=== PATIENT | female | born 1930 | race Caucasian/White ===

== ENCOUNTER 2017-12-08 10:09 | Inpatient (IN) | payer MEDICARE ==
[~2017-12-08] VITALS: Ht 162.6 cm; Wt 79.7 kg
[~2017-12-08 10:09] MED LIST: AGGRENOX 200/251 CAP PO; ANTIVERT PO; BENTYL10 MG PO; CIPROFLOXACIN250 MG PO; COMPAZINE10 MG PO; DARVOCET N-100100 - OR; DICLOFENAC SODI75 MG PO; FLEXERIL5 MG PO; FLUARIX QUADRIV1 IN1 IM; FLUARIX QUADRIV1 INJ IM; FLULAVAL IM; K-DUR/KLOR-CON10 ME1 PO; KLOR-CON 1010 ME1 PO; LASIX 20 MG TAB20 MG PO; LASIX20 MG PO; LIPITOR10 MG PO; LIPITOR20 MG PO; LOMOTIL2.5 MG PO; LOPRESSOR50 MG PO; LORTAB 5/3255 MG PO; MECLIZINE25 MG PO; METFORMIN500 M1 OR; METFORMIN500 M1 PO; METOPROL TAR100 M1 PO; METOPROLOL TAR100 MG PO; METOPROLOL50 MG OR; MULT VITAMI1 PO; NEURONTIN100 MG PO; PERSANTINE25 MG OR; PERSANTINE25 MG PO; PRILOSEC20 MG OR; PRILOSEC20 MG PO; QUININE OR; RAPAFLO8 MG PO; RESTORIL15 M1 OR; TEMAZEPAM30 MG PO; TRAMADOL HCL50 MG PO; ULTRAM50 MG PO; ZETIA10 MG OR; ZETIA10 MG PO; ZPAK PO; [UNRECOGNIZED DRUG - OTHER] PO; [UNRECOGNIZED DRUG - OTHER] PO
[2017-12-08 11:15] LABS: HEMATOCRIT 41.5 % (37.0-47.0); HEMOGLOBIN 13.3 g/dl (12.0-16.0); IMMATURE GRANULOCYTES 0.4 % (0.0-1.0); MEAN CELL VOLUME 98.6 fL CALC (80.0-100.0); MEAN CORPUSCULAR HGB 31.6 pG CALC (26.0-32.0); NEUT# 5.41 thou/uL (2.00-7.15); RED BLOOD COUNT 4.21 mill/uL (4.20-5.60)
[2017-12-08 11:34] LABS: BILIRUBIN, TOTAL 0.6 mg/dL (0.0-1.4); CREATININE 1.2 mg/dL (0.5-1.0); POTASSIUM 4.6 mmol/l (3.5-5.1); TOTAL PROTEIN 6.7 g/dL (6.3-8.2)
[2017-12-08 12:06] LABS: TSH, 3RD GENERATION 2.23 uIU/mL (0.47 - 4.68)
[2017-12-08 13:30] VITALS: BP 116/80
[2017-12-08 14:03] LABS: URINE BILIRUBIN - DIPSTICK NEGATIVE (NEGATIVE); URINE BLOOD DIPSTICK NEGATIVE (NEGATIVE); URINE COLOR YELLOW; URINE GLUCOSE - DIPSTICK NEGATIVE (NEGATIVE); URINE KETONE NEGATIVE (NEGATIVE); URINE LEUK ESTERASE NEGATIVE (Negative); URINE NITRITE - DIPSTICK NEGATIVE (Negative); URINE PH 6.5 (4.5-8.0); URINE PROTEIN - DIPSTICK NEGATIVE (NEG-TRACE); URINE UROBILINOGEN - DIPSTICK 0.2 E.U./dL (0.2)
[2017-12-08 14:05] LABS: URINE CLARITY CLEAR
[2017-12-08 15:09] VITALS: BP 171/81
[2017-12-08 20:22] VITALS: BP 156/83
[2017-12-09 04:11] VITALS: BP 140/71
[2017-12-09 05:29] LABS: HEMATOCRIT 40.2 % (37.0-47.0); HEMOGLOBIN 12.8 g/dl (12.0-16.0); IMMATURE GRANULOCYTES 0.3 % (0.0-1.0); MEAN CELL VOLUME 97.1 fL CALC (80.0-100.0); MEAN CORPUSCULAR HGB 30.9 pG CALC (26.0-32.0); MEAN CORPUSCULAR HGB CONC 31.8 g/L CALC (32.0-36.0); NEUT# 4.02 thou/uL (2.00-7.15); RED BLOOD COUNT 4.14 mill/uL (4.20-5.60); RED CELL DISTRI WIDTH 12.8 % (11.5-15.5)
[2017-12-09 05:49] LABS: ALBUMIN 3.4 g/dL (3.2-5.0); BILIRUBIN, TOTAL 0.7 mg/dL (0.0-1.4); CREATININE 1.1 mg/dL (0.5-1.0); POTASSIUM 4.3 mmol/l (3.5-5.1); TOTAL PROTEIN 5.9 g/dL (6.3-8.2)
[2017-12-09 07:32] VITALS: BP 179/80
[2017-12-09 16:40] VITALS: BP 100/53
[2017-12-09 20:11] VITALS: BP 152/67
[2017-12-10 06:08] LABS: HEMATOCRIT 39.1 % (37.0-47.0); HEMOGLOBIN 12.6 g/dl (12.0-16.0); IMMATURE GRANULOCYTES 0.5 % (0.0-1.0); MEAN CELL VOLUME 96.8 fL CALC (80.0-100.0); MEAN CORPUSCULAR HGB 31.2 pG CALC (26.0-32.0); MEAN CORPUSCULAR HGB CONC 32.2 g/L CALC (32.0-36.0); NEUT# 4.54 thou/uL (2.00-7.15); RED BLOOD COUNT 4.04 mill/uL (4.20-5.60); RED CELL DISTRI WIDTH 12.7 % (11.5-15.5)
[2017-12-10 06:28] VITALS: BP 149/71
[2017-12-10 06:28] LABS: ALBUMIN 3.4 g/dL (3.2-5.0); BILIRUBIN, TOTAL 0.6 mg/dL (0.0-1.4); CREATININE 1.1 mg/dL (0.5-1.0); POTASSIUM 4.6 mmol/l (3.5-5.1)
[2017-12-10 07:30] VITALS: BP 126/72
[2017-12-10 11:31] LABS: URINE BILIRUBIN - DIPSTICK NEGATIVE (NEGATIVE); URINE BLOOD DIPSTICK NEGATIVE (NEGATIVE); URINE COLOR YELLOW; URINE GLUCOSE - DIPSTICK NEGATIVE (NEGATIVE); URINE KETONE NEGATIVE (NEGATIVE); URINE LEUK ESTERASE NEGATIVE (Negative); URINE NITRITE - DIPSTICK NEGATIVE (Negative); URINE PH 6.5 (4.5-8.0); URINE PROTEIN - DIPSTICK NEGATIVE (NEG-TRACE); URINE SPECIFIC GRAVITY <=1.005; URINE UROBILINOGEN - DIPSTICK 0.2 E.U./dL (0.2)
[2017-12-10 11:35] LABS: URINE CLARITY CLEAR
[2017-12-10 15:15] VITALS: BP 115/60
[2017-12-10 19:55] VITALS: BP 108/67
[2017-12-10 23:55] VITALS: BP 114/64
[2017-12-11 03:35] VITALS: BP 129/66
[2017-12-11 05:04] LABS: CREATININE 1.1 mg/dL (0.5-1.0); POTASSIUM 4.7 mmol/l (3.5-5.1)
[2017-12-11 05:45] LABS: HEMATOCRIT 38.5 % (37.0-47.0); HEMOGLOBIN 12.5 g/dl (12.0-16.0); IMMATURE GRANULOCYTES 0.9 % (0.0-1.0); MEAN CORPUSCULAR HGB 31.8 pG CALC (26.0-32.0); MEAN CORPUSCULAR HGB CONC 32.5 g/L CALC (32.0-36.0); NEUT# 3.38 thou/uL (2.00-7.15); RED BLOOD COUNT 3.93 mill/uL (4.20-5.60); RED CELL DISTRI WIDTH 12.6 % (11.5-15.5)
[2017-12-11 07:42] VITALS: BP 126/47
[2017-12-11 15:16] VITALS: BP 133/56
[2017-12-11 19:40] VITALS: BP 133/70
[2017-12-12 00:50] VITALS: BP 128/72
[2017-12-12 05:10] VITALS: BP 153/82
[2017-12-12 07:15] VITALS: BP 158/60
[2017-12-12 14:59] VITALS: BP 128/57
[2017-12-13 05:01] LABS: HEMATOCRIT 38.3 % (37.0-47.0); HEMOGLOBIN 12.3 g/dl (12.0-16.0); IMMATURE GRANULOCYTES 0.5 % (0.0-1.0); MEAN CELL VOLUME 97.7 fL CALC (80.0-100.0); MEAN CORPUSCULAR HGB 31.4 pG CALC (26.0-32.0); MEAN CORPUSCULAR HGB CONC 32.1 g/L CALC (32.0-36.0); NEUT# 3.46 thou/uL (2.00-7.15); RED BLOOD COUNT 3.92 mill/uL (4.20-5.60); RED CELL DISTRI WIDTH 12.6 % (11.5-15.5)
[2017-12-13 05:06] VITALS: BP 133/59
[2017-12-13 05:17] LABS: CREATININE 1.2 mg/dL (0.5-1.0); POTASSIUM 4.7 mmol/l (3.5-5.1)
[2017-12-13 08:00] VITALS: BP 162/75
[2017-12-13 15:35] VITALS: BP 114/56
[2017-12-13 19:12] VITALS: BP 131/70
[2017-12-14 05:18] VITALS: BP 136/71
[2017-12-14 07:40] VITALS: BP 152/72
[2017-12-14 15:00] VITALS: BP 135/61
[2017-12-14 19:05] VITALS: BP 107/66
[2017-12-15 04:30] VITALS: BP 131/67
[2017-12-15 05:35] LABS: HEMOGLOBIN 12.4 g/dl (12.0-16.0); IMMATURE GRANULOCYTES 0.5 % (0.0-1.0); MEAN CELL VOLUME 97.9 fL CALC (80.0-100.0); MEAN CORPUSCULAR HGB CONC 32.6 g/L CALC (32.0-36.0); NEUT# 3.63 thou/uL (2.00-7.15); RED BLOOD COUNT 3.88 mill/uL (4.20-5.60); RED CELL DISTRI WIDTH 12.6 % (11.5-15.5)
[2017-12-15 05:36] LABS: ANION GAP 13 (6-22 (CALC)); BUN 39 mg/dL (8-23); BUN/CREATININE RATIO 38 (12-20 (CALC)); CARBON DIOXIDE 25 mmol/l (22-30); CHLORIDE 107 mmol/l (95-108); GFR 52 ML/MIN (>=60 (CALC)); GFR FOR AFR.AMER. > 60 ML/MIN (>=60 (CALC)); POTASSIUM 4.8 mmol/l (3.5-5.1); SODIUM 141 mmol/l (137-146)
[2017-12-15 07:38] VITALS: BP 122/46
[2017-12-15 16:11] VITALS: BP 112/67
[2017-12-15 19:45] VITALS: BP 116/60
[2017-12-16] VITALS: BP 144/68
[2017-12-16 04:43] VITALS: BP 114/62
[2017-12-16 05:23] LABS: HEMATOCRIT 37.6 % (37.0-47.0); IMMATURE GRANULOCYTES 0.8 % (0.0-1.0); MEAN CELL VOLUME 97.9 fL CALC (80.0-100.0); MEAN CORPUSCULAR HGB 31.3 pG CALC (26.0-32.0); MEAN CORPUSCULAR HGB CONC 31.9 g/L CALC (32.0-36.0); NEUT# 2.64 thou/uL (2.00-7.15); RED BLOOD COUNT 3.84 mill/uL (4.20-5.60); RED CELL DISTRI WIDTH 12.7 % (11.5-15.5)
[2017-12-16 05:28] LABS: CREATININE 1.1 mg/dL (0.5-1.0); POTASSIUM 4.7 mmol/l (3.5-5.1)
[2017-12-16 08:15] VITALS: BP 140/69
[2017-12-16 08:52] VITALS: BP 140/69
[2017-12-16] MEDS ORDERED: TEMAZEPAM15 MG PO (12:29)
[2017-12-16] MEDS ORDERED: LORTAB 7.57.5 MG PO (12:29)
== END 2017-12-16 14:07 | DRG 641 ==
LOC: ED 10:09 → ED-I 12:04 → ED 12:23 → MS2 12:24
PROVIDERS: Emergency Medicine; ADMIT Internal Medicine Geriatric Medicine; ATTEND Internal Medicine Geriatric Medicine
DX: E86.0 Dehydration (principal); M41.9 Scoliosis, unspecified; S82.831A Other fracture of upper and lower end of right fibula, initial encounter for closed fracture; I10 Essential (primary) hypertension; K27.9 Peptic ulcer, site unspecified, unspecified as acute or chronic, without hemorrhage or perforation; E03.9 Hypothyroidism, unspecified; M19.90 Unspecified osteoarthritis, unspecified site; G89.29 Other chronic pain; M54.5 Low back pain; M85.80 Other specified disorders of bone density and structure, unspecified site; R42 Dizziness and giddiness; L30.4 Erythema intertrigo; R27.8 Other lack of coordination; M25.562 Pain in left knee; M25.561 Pain in right knee; R53.1 Weakness; W19.XXXA Unspecified fall, initial encounter; Z96.653 Presence of artificial knee joint, bilateral; Z91.81 History of falling
CPT/HCPCS: J1650